=== PATIENT | female | born 1980 | race Two or more races ===

== ENCOUNTER 2018-08-05 15:16 | Inpatient (IN) | payer MEDICAID ==
[~2018-08-05] VITALS: Ht 157.5 cm; Wt 86.9 kg
[~2018-08-05 15:16] MED LIST: MOTRIN; PREVACID
[2018-08-05] MEDS ORDERED: DONNATAL 5ml ORAL Elix (BELLADONNA ALK-PHENOBARB) PO ONE (16:00)
[2018-08-05] MEDS ORDERED: ALUM & MAG HYDROX-SIMETH LIQ(MAALOX) 30 ML PO ONE (16:00)
[2018-08-05] MEDS ORDERED: LIDOCAINE VISCOUS 2% 15ML UD PO ONE (16:00)
[2018-08-05 16:41] LABS: Hemoglobin 11.8 g/dL (12.2-16.2); Monocytes # (auto) 0.6 uL; White Blood Cell 9.9 10^3/uL (4.4-10.8)
[2018-08-05 16:44] LABS: Basophils # (auto) 0 uL; Basophils % (auto) 0.4 % (0.0-2.0); Eosinophils # (auto) 0.3 uL; Eosinophils % (auto) 2.7 % (0.0-7.0); Hematocrit 35.9 % (36.0-46.0); Lymphocytes # (auto) 2.5 uL; Lymphocytes % (auto) 24.8 % (10.0-50.0); Mean Corpuscular Hemoglobin 24.9 pg (28.0-32.0); Mean Corpuscular Hgb Conc. 32.8 g/dL (32.0-36.0); Monocytes % (auto) 5.9 % (0.0-12.0); Neutrophils # (auto) 6.6 uL; Neutrophils % (auto) 66.2 % (37.0-80.0); Platelet Count (auto) 439 10^3/uL (140-450); Red Blood Cells 4.73 10^6/uL (4.0-5.20); Red Cell Distribution Width 16.8 % (11.8-14.3)
[2018-08-05 16:47] LABS: Albumin 3.7 g/dL (3.4-5.0); Amylase 63 U/L (25-115); Anion Gap 9 (5-15); Aspartate Aminotransferase 16 U/L (15-37); BUN/Creatinine Ratio 14.8; Blood Urea Nitrogen 9 mg/dL (7-18); Calcium 8.4 mg/dL (8.5-10.1); Carbon Dioxide 25 mmol/L (21-32); Chloride 104 mmol/L (98-107); GFR African American 140 mL/min; GFR Non-African American 116 mL/min; Glucose 102 mg/dL (74-106); Lipase 122 U/L (73-393); Potassium 3.7 mmol/L (3.5-5.1); Sodium 138 mmol/L (136-145)
[2018-08-05 16:57] LABS: Alanine Aminotransferase 33 U/L (13-56); Alkaline Phosphatase 79 U/L (45-117); Bilirubin, Total 0.1 mg/dL (0.2-1.0); Total Protein 7.7 g/dL (6.4-8.2)
[2018-08-05 17:02] LABS: Urine WBC None Seen /hpf (0 - 5)
[2018-08-05 17:34] LABS: Urine Bacteria NONE SEEN /hpf (None Seen); Urine Blood Negative /uL (Negative); Urine Specific Gravity 1.012 (1.001-1.035)
[2018-08-05] MEDS ORDERED: ONDANSETRON HCL 4 MG/2 ML VIAL IV ONE ×2 (18:45→19:30)
[2018-08-05] MEDS ORDERED: SODIUM CHLORIDE 0.9% 1,000 ML IV ONE (19:30)
[2018-08-05] MEDS ORDERED: MORPHINE SULFATE 10 MG/ML INJ 1ML SDV IV ONE (19:30)
[2018-08-05] MEDS ORDERED: KETOROLAC TROMETH 30 MG/ML 1ML VIAL ONE (20:21)
[2018-08-05] MEDS ORDERED: HYDROmorphone HCL 2 MG/ML VL ONE (20:21)
[2018-08-05] MEDS ORDERED: HYDROmorphone HCL 2 MG/ML VL IV ONE (20:30)
[2018-08-05] MEDS ORDERED: KETOROLAC TROMETH 30 MG/ML 1ML VIAL IV ONE (20:30)
[2018-08-05] MEDS ORDERED: ONDANSETRON HCL 4 MG/2 ML VIAL ONE (20:50)
[2018-08-05] MEDS ORDERED: HYDROcodone-ACET 5/325MG TAB PO PRN (21:15)
[2018-08-05] MEDS ORDERED: ACETAMINOPHEN 500 MG TAB PO PRN (21:15)
[2018-08-05] MEDS: ONDANSETRON HCL 4 MG/2 ML VIAL IV PRN (23:01)
[2018-08-05] MEDS ORDERED: PROMETHAZINE HCL 25 MG/ML 1ML ONE (23:26)
[2018-08-05] MEDS ORDERED: PROMETHAZINE HCL 25 MG/ML 1ML IV ONE (23:30)
[2018-08-06] VITALS (9 sets, daily range): BP systolic 127–144; BP diastolic 64–87
--- NOTE | 2018-08-06 00:16 | NUR ---
MS admit from ER HERBIE BENITO admitted to [facility] after hand off tool received. Patient oriented to primary RN, unit, room, bed, and unit policies regarding patient care and visiting hours. Patient weighed by bedscale and encouraged to call if they need something. All questions and concerns addressed, patient verbalized understanding.
[2018-08-06] MEDS: MORPHINE SULFATE 10 MG/ML INJ 1ML SDV IV PRN ×6 (00:48→21:07)
--- NOTE | 2018-08-06 03:54 | NUR ---
Rounds Patient crying and moaning in pain, pain medication not available as of yet. Patient provided with warm compress at this time.
[2018-08-06] MEDS ORDERED: RANI-226 PO (05:41)
[2018-08-06] MEDS ORDERED: GABA-339 PO (05:41)
[2018-08-06] MEDS ORDERED: CLAR500T PO (05:41)
[2018-08-06] MEDS ORDERED: MONT10TA34 PO (05:41)
[2018-08-06] MEDS ORDERED: AMAN100C12 PO (05:41)
[2018-08-06] MEDS ORDERED: HYDR-3682 PO (05:41)
[2018-08-06] MEDS ORDERED: AMOX500T3 PO (05:41)
[2018-08-06] MEDS ORDERED: LOPE2CAP PO (05:41)
[2018-08-06] MEDS ORDERED: BACL10TA PO (05:41)
[2018-08-06] MEDS ORDERED: AZEL137S7 (05:41)
[2018-08-06] MEDS ORDERED: ASPI325T4 PO (05:41)
[2018-08-06] MEDS ORDERED: NORT-22 PO (05:41)
[2018-08-06] MEDS ORDERED: PRE1T PO (05:41)
[2018-08-06] MEDS ORDERED: FURO20TA3 PO (05:41)
[2018-08-06] MEDS ORDERED: NITR0.4S29 SL (05:41)
[2018-08-06] MEDS ORDERED: DOXY100C2 PO (05:41)
[2018-08-06] MEDS ORDERED: TRAZ100T2 PO (05:41)
[2018-08-06] MEDS ORDERED: PROP80CA40 PO (05:41)
--- NOTE | 2018-08-06 05:43 | NUR ---
POM x 2 bags Will send to pharmacy in the am.
--- NOTE | 2018-08-06 06:40 | NUR ---
Respiratory note: HR 86,RR 16,POX 97% ON RA,BS CLEAR.PRN [place] TX NOT INDICATED AT THIS TIME.PT INFORMED TO HIT CALL BUTTON IF FEELING SOB OR WHEEZING.
[2018-08-06 06:44] LABS: Basophils # (auto) 0 uL; Eosinophils # (auto) 0.2 uL; Monocytes # (auto) 0.5 uL; White Blood Cell 8.6 10^3/uL (4.4-10.8)
[2018-08-06 06:46] LABS: Basophils % (auto) 0.5 % (0.0-2.0); Eosinophils % (auto) 2.1 % (0.0-7.0); Hematocrit 34.2 % (36.0-46.0); Hemoglobin 11.1 g/dL (12.2-16.2); Lymphocytes # (auto) 2.5 uL; Lymphocytes % (auto) 29.3 % (10.0-50.0); Mean Corpuscular Hemoglobin 24.6 pg (28.0-32.0); Mean Corpuscular Hgb Conc. 32.3 g/dL (32.0-36.0); Neutrophils # (auto) 5.3 uL; Neutrophils % (auto) 62.1 % (37.0-80.0); Platelet Count (auto) 380 10^3/uL (140-450); Red Cell Distribution Width 16.5 % (11.8-14.3)
[2018-08-06 07:06] LABS: Calcium 7.7 mg/dL (8.5-10.1); Potassium 3.5 mmol/L (3.5-5.1)
--- NOTE | 2018-08-06 08:40 | NUR ---
Spoke to surgeon I spoke to MD José, new orders received. Pt kept NPO now, she states she hasn't had anything to eat since [place] and that this morning she drank some juice but threw it up right after. aware.
[2018-08-06] MEDS: ONDANSETRON HCL 4 MG/2 ML VIAL IV PRN ×2 (08:57→21:11)
[2018-08-06] MEDS: GABAPENTIN 400 MG CAP PO SCH ×2 (10:00→21:13)
[2018-08-06] MEDS ORDERED: PANTOPRAZOLE 40 MG/10 ML VIAL IV SCH (10:00)
[2018-08-06 10:20] LABS: INR 0.98 (0.9-1.15); Partial Thromboplastin Time 30.1 sec (23.78-33.04); Prothrombin Time 10.5 sec (9.27-12.13)
--- NOTE | 2018-08-06 11:25 | NUR ---
Patient taken down to preop no s/s of distress or sob noted. Patient care endorsed to Ester OR nurse. Will cont care on arrival back to unit
[2018-08-06] MEDS ORDERED: SUCCINYLCHOLINE CHLORIDE 20 MG/ML 10ML VIAL IV ONE (12:02)
[2018-08-06] MEDS ORDERED: ceFAZolin 1GM/50ML 50 ML IV ONE (12:03)
[2018-08-06] MEDS ORDERED: MIDAZOLAM HCL 1MG/1ML-2 ML VIAL ONE (12:05)
[2018-08-06] MEDS ORDERED: MEPERIDINE HCL (50 MG/ML) 1 ML VIAL ONE (12:05)
[2018-08-06] MEDS ORDERED: fentaNYL CITRATE 100 MCG/2 ML VL ONE (12:05)
[2018-08-06] MEDS ORDERED: DEXAMETHASONE SOD PHOS 10MG/1ML VIAL INJ ONE (12:10)
[2018-08-06] MEDS ORDERED: ETOMIDATE (2MG/ML) 20ML VIAL IV ONE (12:10)
[2018-08-06] MEDS ORDERED: HYDROmorphone HCL 2 MG/ML VL IV PRN (13:00)
[2018-08-06] MEDS: HYDROmorphone HCL 2 MG/ML VL IV PRN ×3 (13:14→13:40)
[2018-08-06] MEDS ORDERED: KETOROLAC TROMETH 30 MG/ML 1ML VIAL IV ONE (13:15)
[2018-08-06] MEDS ORDERED: MORPHINE SULFATE 10 MG/ML INJ 1ML SDV IV PRN (13:15)
[2018-08-06] MEDS ORDERED: ePHEDrine SULFATE 50 MG/ML AMP IV PRN (13:15)
[2018-08-06] MEDS ORDERED: LABETALOL HCL 5 MG/ML 4ML SYRINGE IV PRN (13:15)
[2018-08-06] MEDS ORDERED: ONDANSETRON HCL 4 MG/2 ML VIAL IV ONE (13:15)
[2018-08-06] MEDS ORDERED: MIDAZOLAM HCL 1MG/1ML-2 ML VIAL IV PRN (13:15)
[2018-08-06] MEDS ORDERED: MORPHINE SULFATE 10 MG/ML INJ 1ML SDV IV ONE (14:00)
--- NOTE | 2018-08-06 14:06 | NUR ---
Hospitalist at bedside MD Stevenson notified of patients status, pt still in OR for lap brianne. Awaiting new orders
--- NOTE | 2018-08-06 15:04 | NUR ---
Received report from rn neurology Report received from Nanette rowland, she states pt had and episode of "unresponsiveness and a code blue was called and cancelled right after due to pt became responsive few secs later". Per RN Nanette, pt is stable at this time and that they have attempted to contact hospitalist but unsuccesful. MD Stevenson paged to notify. Will cont care on arrival
--- NOTE | 2018-08-06 15:23 | NUR ---
Patient back to unit pt back from PACU, pt noted anxious screaming and crying. Per pattern chart writer Nanette she states pt just received pain meds. Incision x3 noted to abd, c/d/i. Abd binder on as ordered. VSS BP 138/86 HR 78 T 97.5 o2 99% on 2L n/c. Bed alarm on at all times, will cont to monitor
--- NOTE | 2018-08-06 15:50 | NUR ---
Pt shaking I was informed by student rn Tina that While rounding on patient in A bed, pt's states to come look at patient "there is something wrong with her". Per Tina, she states she noted some shaking that lasted for about 10 seconds and patient is full responsive after shaking stopped. Per pt's "she had a seizure, she gets that way when she's in pain". MD Stevenson aware, no new orders at this time. Cont care. Pt noted laying in bed no s/s of distress or sob. VSS.
--- NOTE | 2018-08-06 16:32 | NUR ---
at bedside MD Stevenson at bedside, aware of patients status including pt c/o abd pain. New orders received. Will obtain EKG as ordered.
--- NOTE | 2018-08-06 17:55 | NUR ---
Spoke to MD List of home meds provided to MD, new orders received to continue some of them. Will input new orders and medicate as ordered.
[2018-08-06] MEDS ORDERED: BACLOFEN 10 MG TAB PO PRN (18:00)
[2018-08-06] MEDS ORDERED: LORazepam 0.5 MG TAB PO PRN (18:00)
[2018-08-06] MEDS ORDERED: hydrOXYzine 25 MG TAB or CAP PO PRN (18:00)
[2018-08-06] MEDS: FUROSEMIDE 20 MG TAB PO SCH (18:45)
--- NOTE | 2018-08-06 18:57 | NUR ---
Patient care endorsed endorsed care to Sona rowland. Patient sitting up in bed, noted eating dinner family members at bedside. No s/s of distress or sob.
--- NOTE | 2018-08-06 19:16 | NUR ---
RT NOTE PT WAS SEEN BY RT FOR PRN [place] TX. PT STATES SHE NOT HAVING ANY DIFFICULTY BREATHING EXCEPT FOR PAIN. NO PRN TX INDICATED AT THIS TIME. HR 76, RR 18, BS CLEAR/DIM. FAMILY AT BEDSIDE. CONT ORDERED POX 97% ON 2L NASAL CANNULA Addendum: 08/06/18 at 1919 by Tori Ashford RT Amended: Links added.
--- NOTE | 2018-08-06 19:30 | NUR ---
Opening shift note Patient in bed alert and oriented x 4, verbally coherent, able to make needs known. Pt's respiration even and unlabored, denies pain and discomfort at this time. Plan of care discussed, patient verbalized understanding. All needs attended, will continue to monitor.
[2018-08-06] MEDS: ceFAZolin 1GM/50ML 50 ML IV SCH (20:34)
--- NOTE | 2018-08-06 21:00 | NUR ---
ROUNDS PATIENT MOANING AND CRYING IN PAIN TO SHOULDER AND ABDOMEN, PT STATED PAIN IS 10/10. PATIENT WITH EPISODES OF VOMITING MINIMAL SOLID PARTICLES. WILL ADMINISTER PAIN AND ANTINAUSEA MEDICATION ORDERED.
[2018-08-06] MEDS: FAMOTIDINE 20 MG TAB PO SCH (21:04)
[2018-08-06] MEDS ORDERED: RANITIDINE HCL 150 MG PO SCH (22:00)
[2018-08-06] MEDS ORDERED: MONTELUKAST SODIUM 10 MG TAB PO SCH ×2 (22:00)
[2018-08-06] MEDS ORDERED: NORTRIPTYLINE HCL 10 MG CAP PO ONE (22:00)
[2018-08-06] MEDS ORDERED: traZODone HCL 50 MG TAB PO SCH (22:00)
[2018-08-06] MEDS: NORTRIPTYLINE HCL 10 MG CAP PO SCH (22:54)
[2018-08-06] MEDS: PROPRANOLOL HCL 20 MG TAB PO SCH (22:56)
--- NOTE | 2018-08-07 | NUR ---
ROUNDS PATIENT CRYING AND MOANING IN PAIN, MORPHINE NOT DUE TO BE GIVEN OF YET, PROVIDED PATIENT WITH WARM PACKS TO SHOULDER. WILL ADMINISTER PAIN MEDICATION ORDERED.
[2018-08-07] MEDS: MORPHINE SULFATE 10 MG/ML INJ 1ML SDV IV PRN ×3 (00:58→09:55)
[2018-08-07 01:09] LABS: Bilirubin, Total 0.2 mg/dL (0.2-1.0)
[2018-08-07] MEDS: ALBUTEROL SULF 2.5 MG/0.5ML(0.5%) NEB SOLN NEB PRN ×2 (01:18→10:42)
[2018-08-07] MEDS: ceFAZolin 1GM/50ML 50 ML IV SCH ×2 (04:14→12:00)
--- NOTE | 2018-08-07 04:15 | NUR ---
ROUNDS ASSISTED PATIENT TO BEDSIDE COMMODE AND BACK TO BED. PT REQUESTING FOR MORPHINE, HOWEVER, NOT DUE TO BE GIVEN OF YET. ADMINISTERED TYLENOL ORDERED.
[2018-08-07] MEDS: FUROSEMIDE 20 MG TAB PO SCH (05:23)
[2018-08-07] MEDS: PROPRANOLOL HCL 20 MG TAB PO SCH ×2 (05:23→14:00)
[2018-08-07 05:30] VITALS: BP 105/73
--- NOTE | 2018-08-07 07:30 | NUR ---
OPENING SHIFT NOTE: Received report from NOC RNSona. Assumed care of patient. Patient lying in bed, states pain is 9/10 and that is her normal. Goal for pain relief 7/10. Set a pain management goal for day. Bed in lowest position, rails x2 up and call light within reach. Updated on plan of care. Will continue to monitor.
[2018-08-07 08:30] VITALS: BP 111/67
[2018-08-07] MEDS: FAMOTIDINE 20 MG TAB PO SCH (09:55)
[2018-08-07] MEDS: GABAPENTIN 400 MG CAP PO SCH (09:55)
[2018-08-07] MEDS ORDERED: AMANTADINE HCL 100 MG CAP PO SCH (10:00)
[2018-08-07] MEDS: NORTRIPTYLINE HCL 10 MG CAP PO SCH (10:00)
[2018-08-07] MEDS ORDERED: ZONISAMIDE 50 MG PO SCH ×2 (10:00)
[2018-08-07] MEDS: ONDANSETRON HCL 4 MG/2 ML VIAL IV PRN (10:01)
--- NOTE | 2018-08-07 11:20 | NUR ---
MD: Dr Stevenson at bedside. Patient to be discharged home.
[2018-08-07 12:00] VITALS: BP 122/76
[2018-08-07 12:28] VITALS: BP 111/67
--- NOTE | 2018-08-07 14:10 | NUR ---
DISCHARGE: Discharge instructions given as ordered. Encourage to follow up with PMD as instructed. All questions and concerns addressed. Patient verbalized understanding. Medication reconciliation form completed and copy given to patient. Home medications held in Pharmacy returned to patient. IV removed with catheter intact, pressure dressing applied.Patient taken to vehicle via wheelchair with all personal belongings, accompanied by staff and family member. No distress noted at time of departure.
[2018-08-07] MEDS ORDERED: GLYCOPYRROLATE 0.2 MG/ML 1ML VIAL IV ONE (14:20)
[2018-08-07] MEDS ORDERED: NEOSTIGMINE 1 MG/ML INJ (10mg/10ML VIAL) IV ONE (14:20)
== END 2018-08-07 16:07 | disposition home or self-care (01) | DRG 263 ==
LOC: ER 15:24 → OVERFLOW 21:06 → WEST WING 22:42
PROVIDERS: ADMIT Nurse Practitioner Family; ATTEND Hospitalist
PROC: 0FT44ZZ Resection of Gallbladder, Percutaneous Endoscopic Approach (ICD-10-PCS; principal; 2018-08-06 11:55)
DX: K80.12 Calculus of gallbladder with acute and chronic cholecystitis without obstruction (principal); E66.01 Morbid (severe) obesity due to excess calories; K57.32 Diverticulitis of large intestine without perforation or abscess without bleeding; K29.80 Duodenitis without bleeding; G89.4 Chronic pain syndrome; I10 Essential (primary) hypertension; I25.10 Atherosclerotic heart disease of native coronary artery without angina pectoris; K29.70 Gastritis, unspecified, without bleeding; M79.7 Fibromyalgia; Z87.11 Personal history of peptic ulcer disease; Z90.49 Acquired absence of other specified parts of digestive tract; Z98.51 Tubal ligation status; Z68.35 Body mass index [BMI] 35.0-35.9, adult
CPT/HCPCS: 36415; 71045; 74176; 76705; 80048; 80053; 81001; 81025; 82150; 82247; 83690; 84484; 85025; 85610; 85730; 86850; 86900; 86901; 94640; 96361; 96374; 96375; C9113; G0378; J0330; J0690; J1100; J1885; J2250; J2405